=== PATIENT | male | born 1995 | race Caucasian/White ===

== ENCOUNTER 2021-07-05 00:21 | Emergency (ER) | payer OTHER ==
[~2021-07-05] VITALS: Ht 162.6 cm; Wt 57.6 kg
[~2021-07-05 00:21] MED LIST: AMOX50SU PO; CETI1SY PO; HYDACE5 PO; HYDACE5325 PO; ONDA4ODT MM; OSEL75CA PO; PROM25 PO
== END 2021-07-05 02:48 | disposition home or self-care (01) ==
LOC: ER 00:21
DX: R00.2 Palpitations (principal); F17.200 Nicotine dependence, unspecified, uncomplicated
CPT/HCPCS: 93005; 93010; 99285-25